=== PATIENT | female | born 1940 | race Two or more races ===

== ENCOUNTER → 2016-07-17 | Outpatient (CLI) | payer MEDICARE ==
--- NOTE | 2016-07-17 09:15 | RAD ---
DATE: 07/17/2016 EXAM: DIGITAL SCREEN BILAT W/CAD HISTORY: Routine screening COMPARISON: 01/14/2013 This study was interpreted with the benefit of Computerized Aided Detection (CAD). FINDINGS: There are scattered fibroglandular densities in the breasts. No new or enlarging breast densities are seen. Benign type calcifications are present. No suspicious microcalcifications have developed. IMPRESSION: Stable mammograms without evidence of malignancy. BI-RADS CATEGORY: 2 BENIGN FINDING(S) RECOMMENDED FOLLOW-UP: 12M 12 MONTH FOLLOW-UP PQRS compliance statement: Patient information was entered into a reminder system with a target due date for the next mammogram. Mammography is a sensitive method for finding small breast cancers, but it does not detect them all and is not a substitute for careful clinical examination. A negative mammogram does not negate a clinically suspicious finding and should not result in delay in biopsying a clinically suspicious abnormality. "Our facility is accredited by the [employer] Mammography Program."
== END | disposition home or self-care (01) ==
LOC: MAMMO 08:48
PROVIDERS: ATTEND Family Medicine
DX: Z12.31 Encounter for screening mammogram for malignant neoplasm of breast (principal)
CPT/HCPCS: G0202; 77067

== ENCOUNTER 2016-08-21 17:21 | Observation (INO) | payer MEDICARE ==
[~2016-08-21] VITALS: Ht 165.1 cm; Wt 81.4 kg
[2016-08-21 18:02] LABS: BASO # 0.1 x10^3/uL (0.0-0.2); BASO % 1 % (0-3); EOS % 1 % (0-3); HEMATOCRIT 38.6 % (36.0-47.0); HEMOGLOBIN 12.2 g/dL (12.0-15.5); LYMPH # 1.4 x10^3/uL (1.0-4.8); LYMPH % 23 % (24-48); MEAN CORPUSCULAR HEMOGLOBIN 26 pg (25-35); MEAN CORPUSCULAR HGB CONC 32 g/dL (31-37); MEAN CORPUSCULAR VOLUME 82 fL (79-100); MONO % 14 % (0-9); NEUT % 61 % (31-73); PLATELET COUNT 177 x10^3/uL (140-400); RED BLOOD COUNT 4.72 x10^6/uL (3.50-5.40); RED CELL DISTRIBUTION WIDTH 15.4 % (11.5-14.5); WHITE BLOOD COUNT 6.2 x10^3/uL (4.0-11.0)
--- NOTE | 2016-08-21 18:11 | EKG ---
[facility] [address] [place] [address] Test Date: 2016-08-21 Test Time: 17:40:00 Pat Name: BENJAMIN MANCERA Department: Room: Gender: F Information Technology Director: : 1940 Requested By: ASHLEY MERINO Order Number: [id number] Reading MD: Measurements Intervals [place] Rate: 77 P: WA: QRS: 36 QRSD: 80 T: 51 QT: 376 QTc: 427 Interpretive Statements IRREGULAR RHYTHM, NO P-WAVE FOUND QRS(T) CONTOUR ABNORMALITY CONSIDER ANTEROSEPTAL MYOCARDIAL DAMAGE RI6.01 No previous ECG available for comparison
[2016-08-21 18:18] LABS: CREATININE 0.8 mg/dL (0.6-1.0); GFR 70.1; POTASSIUM 3.9 mmol/L (3.5-5.1)
--- NOTE | 2016-08-21 18:19 | PHYS DOC ---
Adult General Chief Complaint Chief Complaint: epigastric abd pain HPI HPI 76 yo F presenting to the ED with epigastric abd pain and chest pain that radiates to the left shoulder. This started last night and has been present for about 24 hours. the pain is moderate and without associated nausea or vomiting. ROS is neg for n/v/d, soa, bloody stools. She denies fevers or chills. All other review of systems is negative unless otherwise noted in history of present illness. Review of Systems Review of Systems SEE ABOVE. Current Medications Current Medications Current Medications Medications (Trade) Dose Ordered Sig/Yobani Start Time Stop Time Status Last Admin Dose Admin Aspirin (Children'S Aspirin) 324 mg 1X ONCE 08/21/16 18:30 08/21/16 18:31 DC 08/21/16 18:27 324 MG Multi-Ingredient Mouthwash/Gargle (Gi Cocktail Single Dose) 15 ml 1X ONCE 08/21/16 19:00 08/21/16 19:01 DC 08/21/16 18:28 15 ML Allergies Allergies Allergies Coded Allergies Type Severity Reaction Last Updated Verified No Known Drug Allergies 08/21/16 No Physical Exam Physical Exam Constitutional: Well developed, well nourished, no acute distress, non-toxic appearance. HENT: Normocephalic, atraumatic, bilateral external ears normal, oropharynx moist, no oral exudates, nose normal. [] Eyes: PERRLA, EOMI, conjunctiva normal, no discharge. Neck: Normal range of motion, no tenderness, supple, no stridor. [] Cardiovascular:Heart rate regular rhythm, no murmur Lungs & Thorax: Bilateral breath sounds clear to auscultation [] Abdomen: Abdomen is soft and minimally tender in the epigastrium. No rebound tenderness or guarding present. Negative McBurney's point. Negative Levi sign. Skin: Warm, dry, no erythema, no rash. Back: No tenderness, no CVA tenderness. Extremities: No tenderness, no cyanosis, no clubbing, ROM intact, no edema. Neurologic: Alert and oriented X 3, normal motor function, normal sensory function, no focal deficits noted. Psychologic: Affect normal, judgement normal, mood normal. [] Current Patient Data Vital Signs Vital Signs Date Time Temp Pulse Resp B/P Pulse Ox O2 Delivery O2 Flow Rate FiO2 08/21/16 18:41 77 16 127/70 97 Room Air 08/21/16 17:45 98.4 98.4 Lab Values Laboratory Tests Test 08/21/16 17:55 White Blood Count 6.2x10^3/uL (4.0-11.0) Red Blood Count 4.72x10^6/uL (3.50-5.40) Hemoglobin 12.2g/dL (12.0-15.5) Hematocrit 38.6% (36.0-47.0) Mean Corpuscular Volume 82fL (79-100) Mean Corpuscular Hemoglobin 26pg (25-35) Mean Corpuscular Hemoglobin Concent 32g/dL (31-37) Red Cell Distribution Width 15.4% (11.5-14.5) H Platelet Count 177x10^3/uL (140-400) Neutrophils (%) (Auto) 61% (31-73) Lymphocytes (%) (Auto) 23% (24-48) L Monocytes (%) (Auto) 14% (0-9) H Eosinophils (%) (Auto) 1% (0-3) Basophils (%) (Auto) 1% (0-3) Neutrophils # (Auto) 3.8x10^3uL (1.8-7.7) Lymphocytes # (Auto) 1.4x10^3/uL (1.0-4.8) Monocytes # (Auto) 0.8x10^3/uL (0.0-1.1) Eosinophils # (Auto) 0.1x10^3/uL (0.0-0.7) Basophils # (Auto) 0.1x10^3/uL (0.0-0.2) Sodium Level 140mmol/L (136-145) Potassium Level 3.9mmol/L (3.5-5.1) Chloride Level 100mmol/L (98-107) Carbon Dioxide Level 33mmol/L (21-32) H Anion Gap 7 (6-14) Blood Urea Nitrogen 16mg/dL (7-20) Creatinine 0.8mg/dL (0.6-1.0) Estimated GFR (Cockcroft-Gault) 70.1 Glucose Level 103mg/dL (70-99) H Calcium Level 9.0mg/dL (8.5-10.1) Total Bilirubin 0.5mg/dL (0.2-1.0) Direct Bilirubin 0.1mg/dL (0.0-0.2) Aspartate Amino Transferase (AST) 13U/L (15-37) L Alanine Aminotransferase (ALT) 21U/L (14-59) Alkaline Phosphatase 71U/L (46-116) Troponin I Quantitative < 0.017ng/mL (0.000-0.055) BL-Asn-L-Type Natriuretic Peptide 89pg/mL (0-124) Total Protein 7.1g/dL (6.4-8.2) Albumin 3.7g/dL (3.4-5.0) Lipase 110U/L (73-393) Laboratory Tests 08/21/16 17:55 Laboratory Tests 08/21/16 17:55 EKG EKG [] EKG shows A. fib with a regular rate. [place] is leftward. Intervals are within normal limits. ST segments are congruent. Radiology/Procedures Radiology/Procedures Chest x-ray reviewed by myself shows no obvious infiltrate or pneumothorax present. No obvious acute cardiopulmonary process present.[] Course & Med Decision Making Course & Med Decision Making Pertinent Labs and Imaging studies reviewed. (See chart for details) [] 76-year-old female presenting to the emergency department with epigastric abdominal pain that radiated to the left shoulder and chest pain. vitals. Pertinent physical exam showed mild tenderness in the epigastrium without rebound tenderness or guarding present. Nontender gallbladder. EKG unremarkable. Blood work obtained which showed a normal troponin. Chest x-ray unremarkable. The patient was then admitted for chest pain rule out. Cardiology consult placed. Heart score of 5. Dragon Disclaimer Dragon Disclaimer This electronic medical record was generated, in whole or in part, using a voice recognition dictation system. Departure Departure Impression: Primary Impression: Chest pain Additional Impression: Epigastric abdominal pain Disposition: ADMITTED INPATIENT Admitting Physician: Meghana Pinon Condition: STABLE Referrals: MARISOL TEMPLE MD (PCP) Problem Qualifiers Primary Impression: Chest pain ASHLEY MERINO MD Aug 21, 2016 18:19
[2016-08-21 18:23] LABS: ALBUMIN 3.7 g/dL (3.4-5.0); DIRECT BILIRUBIN 0.1 mg/dL (0.0-0.2); TOTAL BILIRUBIN 0.5 mg/dL (0.2-1.0); TOTAL PROTEIN 7.1 g/dL (6.4-8.2)
[2016-08-21] MEDS ORDERED: ASPIRIN CHEWABLE 81 MG TABLET. PO ONE (18:30)
[2016-08-21] MEDS ORDERED: LIDO:MAALOX:DONNATAL 1:1:1 15 ML SINGLE DOSE SWSW ONE (19:00)
[2016-08-21] MEDS ORDERED: ONDANSETRON PF 4 MG/2 ML VIAL. IV PRN ×2 (20:30→20:32)
[2016-08-21] MEDS ORDERED: NITROGLYCERIN SUBLINGUAL 0.4 MG BOTTLE OF 25. SL PRN (20:30)
[2016-08-21] MEDS ORDERED: ACETAMINOPHEN 500 MG TABLET PO PRN (20:45)
[2016-08-21 23:01] VITALS: BP 112/68
[2016-08-21 23:02] VITALS: BP 112/68
[2016-08-21] MEDS: MORPHINE SULFATE 2 MG/ML DISP.SYRIN. IV PRN (23:12)
[2016-08-22] MEDS: MORPHINE SULFATE 2 MG/ML DISP.SYRIN. IV PRN ×2 (01:16→14:56)
[2016-08-22] MEDS ORDERED: DIAZ5TAB4 PO (01:42)
[2016-08-22] MEDS ORDERED: OMEG1CAP6 PO (01:42)
[2016-08-22] MEDS ORDERED: LOVA20TA2 PO (01:42)
[2016-08-22] MEDS ORDERED: LINA1TAB5 PO (01:42)
[2016-08-22] MEDS ORDERED: HYDR50TA6 PO (01:42)
[2016-08-22 02:30] VITALS: BP 93/58
[2016-08-22 05:38] LABS: BASO % 1 % (0-3); EOS % 1 % (0-3); HEMATOCRIT 36.8 % (36.0-47.0); HEMOGLOBIN 11.9 g/dL (12.0-15.5); LYMPH # 1.7 x10^3/uL (1.0-4.8); LYMPH % 30 % (24-48); MEAN CORPUSCULAR HEMOGLOBIN 27 pg (25-35); MEAN CORPUSCULAR HGB CONC 32 g/dL (31-37); MEAN CORPUSCULAR VOLUME 82 fL (79-100); MONO % 14 % (0-9); NEUT % 55 % (31-73); PLATELET COUNT 150 x10^3/uL (140-400); RED BLOOD COUNT 4.51 x10^6/uL (3.50-5.40); RED CELL DISTRIBUTION WIDTH 15.4 % (11.5-14.5); WHITE BLOOD COUNT 5.6 x10^3/uL (4.0-11.0)
[2016-08-22 05:58] LABS: CALCIUM 8.3 mg/dL (8.5-10.1); CREATININE 0.6 mg/dL (0.6-1.0); GFR 97.7; POTASSIUM 3.7 mmol/L (3.5-5.1)
[2016-08-22 07:00] VITALS: BP 107/62
--- NOTE | 2016-08-22 07:53 | RAD ---
Exam: AP portable chest. History: Chest pain by 1 day. Pain radiates to left posterior shoulder. Comparison: None. Findings: The heart and mediastinal structures are within normal limits for size. Lungs are without infiltrate. No pneumothorax or pleural effusion is appreciated. Impression: 1. No acute cardiopulmonary process.
--- NOTE | 2016-08-22 08:56 | PDOC2 ---
CARDIAC CONSULT DATE OF CONSULT Date of Consult DATE: 08/22/16 TIME: 08:51 REASON FOR CONSULT Reason for Consult: Chest Pain REFERRING PHYSICIAN Referring Physician: Dr. Moore SOURCE Source: Chart review, Patient HISTORY OF PRESENT ILLNESS HISTORY OF PRESENT ILLNESS This is a 76 yo female who presented with complaints of chest pain. Pain began a couple of days ago. Located in left upper quadrant and up under left breast. Radiated toward he left shoulder. Describes as constant and stabbing in nature. Worsened by deep breath and by applying pressure to the left chest. Reports pain is severely tender to touch. Does not seem to be affected by movement or activity. Jensen any associated dizziness, diaphoresis, palpitations, or nausea/ vomiting. No recent illness, fevers, orthopnea, or LE edema. History of HTN, HLP , and DM; is complaint with medications. PAST MEDICAL HISTORY Cardiovascular: HTN, Hyperlipidemia Pulmonary: No pertinent hx GI: No pertinent hx Heme/Onc: No pertinent hx Hepatobiliary: No pertinent hx Psych: No pertinent hx Rheumatologic: No pertinent hx Infectious disease: No pertinent hx ENT: No pertinent hx Renal/: No pertinent hx Endocrine: Diabetes Dermatology: No pertinent hx PAST SURGICAL HISTORY Past Surgical History: Other (oophorectomy ) FAMILY HISTORY Family History: Diabetes, Hypertension SOCIAL HISTORY Smoke: No ALCOHOL: occassional Drugs: None Lives: with Family CURRENT MEDICATIONS CURRENT MEDICATIONS Current Medications Medications (Trade) Dose Ordered Sig/Yobani Route PRN Reason Start Time Stop Time Status Last Admin Dose Admin Aspirin (Children'S Aspirin) 324 mg 1X ONCE PO 08/21/16 18:30 08/21/16 18:31 DC 08/21/16 18:27 Multi-Ingredient Mouthwash/Gargle (Gi Cocktail Single Dose) 15 ml 1X ONCE SWSW 08/21/16 19:00 08/21/16 19:01 DC 08/21/16 18:28 Morphine Sulfate 2 mg PRN Q2HR PRN IV PAIN 08/21/16 20:30 08/22/16 20:29 08/22/16 01:16 ALLERGIES ALLERGIES: Coded Allergies: No Known Drug Allergies (Unverified , 08/21/16) ROS Review of System 14 point ROS conducted with pertinent positives noted above in HPI PHYSICAL EXAM General: Alert, Oriented X3, Cooperative, No acute distress HEENT: Atraumatic, Mucous membr. moist/pink Lungs: Clear to auscultation, Normal air movement Heart: Regular rate, Normal S1, Normal S2, No murmurs, Other (tenderness with palpation to chest under left breast) Abdomen: Soft, Other (LUQ tenderness with palpation) Extremities: No edema, Normal pulses Skin: No breakdown, No significant lesion Neuro: Normal speech, Sensation intact Psych/Mental Status: Mental status NL, Mood NL MUSCULOSKELETAL: Full range of motion without pain VITALS VITALS Vital Signs Date Time Temp Pulse Resp B/P Pulse Ox O2 Delivery O2 Flow Rate FiO2 08/22/16 07:00 97.9 70 18 107/62 94 Room Air 97.9 LABS Lab: Laboratory Tests Test 08/21/16 17:55 08/22/16 01:53 08/22/16 05:00 08/22/16 08:03 White Blood Count 6.2x10^3/uL (4.0-11.0) 5.6x10^3/uL (4.0-11.0) Red Blood Count 4.72x10^6/uL (3.50-5.40) 4.51x10^6/uL (3.50-5.40) Hemoglobin 12.2g/dL (12.0-15.5) 11.9g/dL (12.0-15.5) Hematocrit 38.6% (36.0-47.0) 36.8% (36.0-47.0) Mean Corpuscular Volume 82fL (79-100) 82fL (79-100) Mean Corpuscular Hemoglobin 26pg (25-35) 27pg (25-35) Mean Corpuscular Hemoglobin Concent 32g/dL (31-37) 32g/dL (31-37) Red Cell Distribution Width 15.4% (11.5-14.5) 15.4% (11.5-14.5) Platelet Count 177x10^3/uL (140-400) 150x10^3/uL (140-400) Neutrophils (%) (Auto) 61% (31-73) 55% (31-73) Lymphocytes (%) (Auto) 23% (24-48) 30% (24-48) Monocytes (%) (Auto) 14% (0-9) 14% (0-9) Eosinophils (%) (Auto) 1% (0-3) 1% (0-3) Basophils (%) (Auto) 1% (0-3) 1% (0-3) Neutrophils # (Auto) 3.8x10^3uL (1.8-7.7) 3.1x10^3uL (1.8-7.7) Lymphocytes # (Auto) 1.4x10^3/uL (1.0-4.8) 1.7x10^3/uL (1.0-4.8) Monocytes # (Auto) 0.8x10^3/uL (0.0-1.1) 0.8x10^3/uL (0.0-1.1) Eosinophils # (Auto) 0.1x10^3/uL (0.0-0.7) 0.1x10^3/uL (0.0-0.7) Basophils # (Auto) 0.1x10^3/uL (0.0-0.2) 0.0x10^3/uL (0.0-0.2) Sodium Level 140mmol/L (136-145) 140mmol/L (136-145) Potassium Level 3.9mmol/L (3.5-5.1) 3.7mmol/L (3.5-5.1) Chloride Level 100mmol/L (98-107) 102mmol/L (98-107) Carbon Dioxide Level 33mmol/L (21-32) 31mmol/L (21-32) Anion Gap 7 (6-14) 7 (6-14) Blood Urea Nitrogen 16mg/dL (7-20) 10mg/dL (7-20) Creatinine 0.8mg/dL (0.6-1.0) 0.6mg/dL (0.6-1.0) Estimated GFR (Cockcroft-Gault) 70.1 97.7 Glucose Level 103mg/dL (70-99) 115mg/dL (70-99) Calcium Level 9.0mg/dL (8.5-10.1) 8.3mg/dL (8.5-10.1) Total Bilirubin 0.5mg/dL (0.2-1.0) Direct Bilirubin 0.1mg/dL (0.0-0.2) Aspartate Amino Transf (AST/SGOT) 13U/L (15-37) Alanine Aminotransferase (ALT/SGPT) 21U/L (14-59) Alkaline Phosphatase 71U/L (46-116) Troponin I Quantitative < 0.017ng/mL (0.000-0.055) < 0.017ng/mL (0.000-0.055) LA-Lep-R-Type Natriuretic Peptide 89pg/mL (0-124) Total Protein 7.1g/dL (6.4-8.2) Albumin 3.7g/dL (3.4-5.0) Lipase 110U/L (73-393) Glucose (Fingerstick) 124mg/dL (70-99) STRESS TEST STRESS TEST Conclusion 1. Treadmill exercise cardioisotope stress test did not show any evidence of ischemia or infarct. 2. Normal left ventricular systolic function with ejection fraction calculated at >80%. 3. Patient had good activity tolerance. Low risk for cardiovascular events. DATE: 01/11/15 6897 ASSESSMENT/PLAN ASSESSMENT/PLAN 1. Chest pain, atypical- easily reproduced troponin series normal- AMI ruled out pain likely MSK as it is clearly reproducible or referred from abdominal process? treadmill stress 12/30 without evidence of ischemia given risk factors, will check echo to assess LV function and r/o WMA Add [id number] 2. Hypertension well controlled with meds 3. Hyperlipidemia LDL 95 statin therapy 4. Diabetes controlled. per PCP Problems: SLY PATRICK APRN Aug 22, 2016 08:56
[2016-08-22 08:58] LABS: CHOLESTEROL/HDL RATIO 2.3
[2016-08-22] MEDS ORDERED: FAMOTIDINE 20 MG/2 ML VIAL IVP ONE (09:00)
[2016-08-22] MEDS ORDERED: LINAGLIPTIN 5 MG TABLET PO SCH ×2 (09:30)
[2016-08-22] MEDS ORDERED: HYDROCHLOROTHIAZIDE 25 MG TABLET PO SCH (09:30)
[2016-08-22] MEDS ORDERED: METFORMIN XR 500 MG TAB.ER.24H PO SCH (09:30)
--- NOTE | 2016-08-22 10:01 | PDOC1 ---
History and Physical Date of Admission Date of Admission DATE: 08/22/16 TIME: 09:55 Identification/Chief Complaint Chief Complaint chest pain Source Source: Chart review, Patient History of Present Illness History of Present Illness Ms. Lam, is a 76 yo female admit from ER w/ chest pain. Pain began a couple of days ago. Pain 5/10 mid chest, started epigastric to left shoulder yesterday. Episodes X2 of pain, happeded at exertion andstopped at rest. She feels well now, pain 0 at rest, but worse with deep inspiration and she can press on her chest and cause the pain no prior CV history, htn and Dm she reports following well with PCP Past Medical History Cardiovascular: HTN, Hyperlipidemia Pulmonary: No pertinent hx GI: No pertinent hx Heme/Onc: No pertinent hx Hepatobiliary: No pertinent hx Psych: No pertinent hx Rheumatologic: No pertinent hx Infectious disease: No pertinent hx ENT: No pertinent hx Renal/: No pertinent hx Endocrine: Diabetes Dermatology: No pertinent hx Past Surgical History Past Surgical History: Other (oophorectomy ) Family History Family History: Diabetes, Hypertension Social History Smoke: No ALCOHOL: none Drugs: None Current Problem List Problem List Problems Medical Problems: (1) Chest pain Status: Acute (2) Epigastric abdominal pain Status: Acute Problems: Current Medications Current Medications Current Medications Aspirin (Children'S Aspirin) 324 mg 1X ONCE PO Last administered on 08/21/16 18:27; Start 08/21/16 at 18:30; Stop 08/21/16 at 18:31; Status DC Multi-Ingredient Mouthwash/Gargle (Gi Cocktail Single Dose) 15 ml 1X ONCE SWSW Last administered on 08/21/16 18:28; Start 08/21/16 at 19:00; Stop 08/21/16 at 19:01; Status DC Ondansetron HCl (Zofran) 4 mg PRN Q8HRS PRN IV NAUSEA/VOMITING; Start 08/21/16 at 20:30; Stop 08/21/16 at 20:34; Status DC Morphine Sulfate 2 mg PRN Q2HR PRN IV PAIN Last administered on 08/22/16 01:16 ; Start 08/21/16 at 20:30; Stop 08/22/16 at 20:29 Nitroglycerin (Nitrostat) 0.4 mg PRN Q5MIN PRN SL CHEST PAIN; Start 08/21/16 at 20:30; Stop 08/22/16 at 20:29 Ondansetron HCl (Zofran) 4 mg PRN Q6HRS PRN IV NAUSEA/VOMITING; Start 08/21/16 at 20:32 Acetaminophen (Tylenol) 500 mg PRN Q4HRS PRN PO pain; Start 08/21/16 at 20:45 Famotidine (Pepcid) 20 mg 1X ONCE IVP ; Start 08/22/16 at 09:00; Stop 08/22/16 at 09:01; Status DC Diazepam (Valium) 5 mg QHS PO ; Start 08/22/16 at 21:00 Hydrochlorothiazide (Hydrodiuril) 50 mg DAILY PO ; Start 08/22/16 at 09:30 Linagliptin (Tradjenta) 5 mg DAILY PO ; Start 08/22/16 at 09:30; Stop 08/22/16 at 09:30; Status DC Atorvastatin Calcium (Lipitor) 10 mg QHS PO ; Start 08/22/16 at 21:00 Metformin HCl (Glucophage Xr) 1,000 mg DAILYWBKFT PO ; Start 08/22/16 at 09:30 Linagliptin (Tradjenta) 5 mg DAILY PO ; Start 08/22/16 at 09:30 Aspirin (Ecotrin) 81 mg DAILYWBKFT PO ; Start 08/22/16 at 10:30 Lidocaine (Lidoderm) 1 patch DAILY TD ; Start 08/22/16 at 10:30 Active Scripts Active Reported Fish Oil 1,000 Mg Capsule ([place]-3 Fatty Acids/Fish Oil) 1 Each Capsule 1 Each PO Lovastatin 20 Mg Tablet 1 Tab PO DAILY Jentadueto 2.5 Mg-1000 Mg Tab (Linagliptin/Metformin Hcl) 1 Each Tablet 5 Mg PO DAILY Hydrochlorothiazide Tablet (Hydrochlorothiazide) 50 Mg Tablet 1 Tab PO DAILY Diazepam 5 Mg Tablet 5 Mg PO QHS Allergies Allergies: Coded Allergies: No Known Drug Allergies (Unverified , 08/21/16) ROS General: No: Appetite, Chills, Fatigue, Malaise, Night Sweats, Other PSYCHOLOGICAL ROS: No: Anxiety, Behavioral Disorder, Concentration difficultie , Decreased libido, Depression, Disorientation, Hallucinations, Hostility, Irritablity, Memory difficulties, Mood Swings, Obsessive thoughts, Other, Physical abuse, Sexual abuse, Sleep disturbances, Suicidal ideation Eyes: No Blurry vision, No Decreased vision, No Double vision, No Dry eyes, No Excessive tearing, No Eye Pain, No Itchy Eyes, No Loss of vision, No Other, No Photophobia, No Scotomata, No Uses contacts, No Uses glasses HEENT: No: Epistaxis, Heacaches, Hearing change, Nasal congestion, Nasal discharge, Oral lesions, Other, Sinus pain, Sneezing, Snoring, Sore Throat, Tinnitus, Vertigo, Visual Changes, Vocal changes Respiratory: YES: SOB with excertion, No: Cough, Hemoptysis, Orthopnea, Other, Pleuritic Pain, Shortness of breath , Sputum Changes, Stridor, Tachypnea, Wheezing Cardiovascular: yes Chest Pain, No Edema, No Lt Headedness, No Orthopnea, No Other, No Palpitations, No Paroxysmal Noc. Dyspnea Gastrointestinal: No Abdominal Pain, No Constipation, No Diarrhea, No Hematochezia, No Melena, No Nausea, No Other, No Vomiting Genitourinary: No , No , No , No , No , No , No , No Discharge, No Dysuria, No Flank Pain, No Frequency, No Hematuria, No Incontinence, No Other, No Pain, No Retention, No Urgency Musculoskeletal: Yes Joint Pain, No Gait Disturbance, No Joint Stiffness, No Joint Swelling, No Muscle Pain, No Muscular Weakness, No Other, No Pain In:, No Swelling In: Neurological: No Behavorial Changes, No Bowel/Bladder ControlChng, No Confusion , No Dizziness, No Gait Disturbance, No Headaches, No Impaired Coord/balance, No Memory Loss, No Numbness/Tingling, No Other, No Seizures, No Speech Problems , No Tremors, No Visual Changes, No Weakness Skin: No Acne, No Dry Skin, No Eczema, No Hair Changes, No Lumps, No Mole Changes, No Mottling, No Nail Changes, No Other, No Pruritus, No Rash, No Skin Lesion Changes Physical Exam General: Alert, Cooperative, No acute distress HEENT: PERRLA Lungs: Clear to auscultation, Normal air movement, Other (tender to palpation mid sternum) Heart: RRR, no murmurs Abdomen: Normal bowel sounds, Soft Rectal Exam: not examined Extremities: No clubbing, No cyanosis Skin: No breakdown Neuro: Normal gait, Normal speech, Normal tone, Sensation intact, Cranial nerves 3-12 NL Psych/Mental Status: Mood NL Vitals Vitals Vital Signs Date Time Temp Pulse Resp B/P Pulse Ox O2 Delivery O2 Flow Rate FiO2 08/22/16 07:00 97.9 70 18 107/62 94 Room Air 97.9 Labs Labs Laboratory Tests Test 08/21/16 17:55 08/22/16 01:53 08/22/16 05:00 08/22/16 08:03 White Blood Count 6.2x10^3/uL (4.0-11.0) 5.6x10^3/uL (4.0-11.0) Red Blood Count 4.72x10^6/uL (3.50-5.40) 4.51x10^6/uL (3.50-5.40) Hemoglobin 12.2g/dL (12.0-15.5) 11.9g/dL (12.0-15.5) Hematocrit 38.6% (36.0-47.0) 36.8% (36.0-47.0) Mean Corpuscular Volume 82fL (79-100) 82fL (79-100) Mean Corpuscular Hemoglobin 26pg (25-35) 27pg (25-35) Mean Corpuscular Hemoglobin Concent 32g/dL (31-37) 32g/dL (31-37) Red Cell Distribution Width 15.4% (11.5-14.5) 15.4% (11.5-14.5) Platelet Count 177x10^3/uL (140-400) 150x10^3/uL (140-400) Neutrophils (%) (Auto) 61% (31-73) 55% (31-73) Lymphocytes (%) (Auto) 23% (24-48) 30% (24-48) Monocytes (%) (Auto) 14% (0-9) 14% (0-9) Eosinophils (%) (Auto) 1% (0-3) 1% (0-3) Basophils (%) (Auto) 1% (0-3) 1% (0-3) Neutrophils # (Auto) 3.8x10^3uL (1.8-7.7) 3.1x10^3uL (1.8-7.7) Lymphocytes # (Auto) 1.4x10^3/uL (1.0-4.8) 1.7x10^3/uL (1.0-4.8) Monocytes # (Auto) 0.8x10^3/uL (0.0-1.1) 0.8x10^3/uL (0.0-1.1) Eosinophils # (Auto) 0.1x10^3/uL (0.0-0.7) 0.1x10^3/uL (0.0-0.7) Basophils # (Auto) 0.1x10^3/uL (0.0-0.2) 0.0x10^3/uL (0.0-0.2) Sodium Level 140mmol/L (136-145) 140mmol/L (136-145) Potassium Level 3.9mmol/L (3.5-5.1) 3.7mmol/L (3.5-5.1) Chloride Level 100mmol/L (98-107) 102mmol/L (98-107) Carbon Dioxide Level 33mmol/L (21-32) 31mmol/L (21-32) Anion Gap 7 (6-14) 7 (6-14) Blood Urea Nitrogen 16mg/dL (7-20) 10mg/dL (7-20) Creatinine 0.8mg/dL (0.6-1.0) 0.6mg/dL (0.6-1.0) Estimated GFR (Cockcroft-Gault) 70.1 97.7 Glucose Level 103mg/dL (70-99) 115mg/dL (70-99) Calcium Level 9.0mg/dL (8.5-10.1) 8.3mg/dL (8.5-10.1) Total Bilirubin 0.5mg/dL (0.2-1.0) Direct Bilirubin 0.1mg/dL (0.0-0.2) Aspartate Amino Transf (AST/SGOT) 13U/L (15-37) Alanine Aminotransferase (ALT/SGPT) 21U/L (14-59) Alkaline Phosphatase 71U/L (46-116) Troponin I Quantitative < 0.017ng/mL (0.000-0.055) < 0.017ng/mL (0.000-0.055) SZ-Cey-H-Type Natriuretic Peptide 89pg/mL (0-124) Total Protein 7.1g/dL (6.4-8.2) Albumin 3.7g/dL (3.4-5.0) Lipase 110U/L (73-393) Glucose (Fingerstick) 124mg/dL (70-99) Test 08/22/16 08:20 Troponin I Quantitative < 0.017ng/mL (0.000-0.055) Triglycerides Level 22mg/dL (0-150) Cholesterol Level 173mg/dL (0-200) LDL Cholesterol, Calculated 95mg/dL (0-100) VLDL Cholesterol, Calculated 4mg/dL (0-40) HDL Cholesterol 74mg/dL (40-60) Cholesterol/HDL Ratio 2.3 Laboratory Tests Test 08/21/16 17:55 08/22/16 01:53 08/22/16 05:00 08/22/16 08:03 White Blood Count 6.2x10^3/uL (4.0-11.0) 5.6x10^3/uL (4.0-11.0) Red Blood Count 4.72x10^6/uL (3.50-5.40) 4.51x10^6/uL (3.50-5.40) Hemoglobin 12.2g/dL (12.0-15.5) 11.9g/dL (12.0-15.5) Hematocrit 38.6% (36.0-47.0) 36.8% (36.0-47.0) Mean Corpuscular Volume 82fL (79-100) 82fL (79-100) Mean Corpuscular Hemoglobin 26pg (25-35) 27pg (25-35) Mean Corpuscular Hemoglobin Concent 32g/dL (31-37) 32g/dL (31-37) Red Cell Distribution Width 15.4% (11.5-14.5) 15.4% (11.5-14.5) Platelet Count 177x10^3/uL (140-400) 150x10^3/uL (140-400) Neutrophils (%) (Auto) 61% (31-73) 55% (31-73) Lymphocytes (%) (Auto) 23% (24-48) 30% (24-48) Monocytes (%) (Auto) 14% (0-9) 14% (0-9) Eosinophils (%) (Auto) 1% (0-3) 1% (0-3) Basophils (%) (Auto) 1% (0-3) 1% (0-3) Neutrophils # (Auto) 3.8x10^3uL (1.8-7.7) 3.1x10^3uL (1.8-7.7) Lymphocytes # (Auto) 1.4x10^3/uL (1.0-4.8) 1.7x10^3/uL (1.0-4.8) Monocytes # (Auto) 0.8x10^3/uL (0.0-1.1) 0.8x10^3/uL (0.0-1.1) Eosinophils # (Auto) 0.1x10^3/uL (0.0-0.7) 0.1x10^3/uL (0.0-0.7) Basophils # (Auto) 0.1x10^3/uL (0.0-0.2) 0.0x10^3/uL (0.0-0.2) Sodium Level 140mmol/L (136-145) 140mmol/L (136-145) Potassium Level 3.9mmol/L (3.5-5.1) 3.7mmol/L (3.5-5.1) Chloride Level 100mmol/L (98-107) 102mmol/L (98-107) Carbon Dioxide Level 33mmol/L (21-32) 31mmol/L (21-32) Anion Gap 7 (6-14) 7 (6-14) Blood Urea Nitrogen 16mg/dL (7-20) 10mg/dL (7-20) Creatinine 0.8mg/dL (0.6-1.0) 0.6mg/dL (0.6-1.0) Estimated GFR (Cockcroft-Gault) 70.1 97.7 Glucose Level 103mg/dL (70-99) 115mg/dL (70-99) Calcium Level 9.0mg/dL (8.5-10.1) 8.3mg/dL (8.5-10.1) Total Bilirubin 0.5mg/dL (0.2-1.0) Direct Bilirubin 0.1mg/dL (0.0-0.2) Aspartate Amino Transf (AST/SGOT) 13U/L (15-37) Alanine Aminotransferase (ALT/SGPT) 21U/L (14-59) Alkaline Phosphatase 71U/L (46-116) Troponin I Quantitative < 0.017ng/mL (0.000-0.055) < 0.017ng/mL (0.000-0.055) IP-Amz-Q-Type Natriuretic Peptide 89pg/mL (0-124) Total Protein 7.1g/dL (6.4-8.2) Albumin 3.7g/dL (3.4-5.0) Lipase 110U/L (73-393) Glucose (Fingerstick) 124mg/dL (70-99) Test 08/22/16 08:20 Troponin I Quantitative < 0.017ng/mL (0.000-0.055) Triglycerides Level 22mg/dL (0-150) Cholesterol Level 173mg/dL (0-200) LDL Cholesterol, Calculated 95mg/dL (0-100) VLDL Cholesterol, Calculated 4mg/dL (0-40) HDL Cholesterol 74mg/dL (40-60) Cholesterol/HDL Ratio 2.3 VTE Prophylaxis Ordered VTE Prophylaxis Devices: Yes VTE Pharmacological Prophylaxi: No Assessment/Plan Assessment/Plan chest pain, reproducible, chostochrondritis pain with exertion and chest pain to shoulder x2 yesterday, r/o ACS, unsure if true anginal pain, patient seemed confused when I tried to get more details of when and how the pain happened CV consult plan echo Dm2, diet htn, hyperlipids, check lipids obs, try to DC soon SHAYE MIRZA MD Aug 22, 2016 10:01
[2016-08-22] MEDS ORDERED: ASPIRIN ENTERIC COATED 81 MG TABLET.DR. PO SCH (10:30)
[2016-08-22] MEDS ORDERED: LIDOCAINE (700MG/PATCH) PATCH. TD SCH (10:30)
[2016-08-22 10:54] VITALS: BP 110/64
--- NOTE | 2016-08-22 12:39 | CARD ---
APPROVED REPORT EXAM: Two-dimensional and M-mode echocardiogram with Doppler and color Doppler. Other Information Quality : Good INDICATION Chest Pain 2D DIMENSIONS RVDd2.2 (2.9-3.5cm)Left Atrium(2D)3.4 (1.6-4.0cm) IVSd1.1 (0.7-1.1cm)Aortic Root(2D)2.5 (2.0-3.7cm) LVDd5.1 (3.9-5.9cm)LVOT Diameter1.9 (1.8-2.4cm) PWd1.0 (0.7-1.1cm)LVDs2.4 (2.5-4.0cm) FS (%) 30.0 %SV103.5 ml LVEF(%)60.0 (>50%) Aortic Valve AoV Peak Romulo.122.7cm/sAoV VTI25.2cm AO Peak GR.6.0mmHgLVOT Peak Romulo.120.5cm/s LVOT VTI 25.76cmAO Mean GR.4mmHg SHELLI (VMAX)2.41dk1LHL (VTI)2.82cm2 Mitral Valve MV E Zfundyey18.6cm/sMV DECEL [id number] MV A Rkphtxdz50.4cm/sMV KFO77mp E/A Ratio0.8MVA (PHT)2.83cm2 TDI E/Lateral E'8.7E/Medial E'8.3 Tricuspid Valve TR P. Kqljtpfy961gv/sRAP UFCHSLRS9ahQt TR Peak Gr.42yhZmVFOU38cfSj Pulmonary Vein S1 Edtbfrhm20.8cm/sD2 Znlmbcnq31.1cm/s PVa cfihilsm216cnbd LEFT VENTRICLE The left ventricle is normal size. There is normal left ventricular wall thickness. The left ventricu lar systolic function is normal and the ejection fraction is within normal range. The Ejection Fracti on is 55-60%. There is normal LV segmental wall motion. Transmitral Doppler flow pattern is Grade I-a bnormal relaxation pattern. RIGHT VENTRICLE The right ventricle is normal size. The right ventricular systolic function is normal. ATRIA The left atrium size is normal. The right atrium size is normal. The interatrial septum is intact wit h no evidence for an atrial septal defect or patent foramen ovale as noted on 2-D or Doppler imaging. AORTIC VALVE The aortic valve is calcified but opens well. Doppler and Color Flow revealed no significant aortic r egurgitation. There is no significant aortic valvular stenosis. MITRAL VALVE The mitral valve is calcified but opens well. There is no evidence of mitral valve prolapse. There is no mitral valve stenosis. Doppler and Color-flow revealed trace to mild mitral regurgitation. TRICUSPID VALVE The tricuspid valve is normal in structure and function. Doppler and Color Flow revealed trace tricus pid regurgitation. The PA pressure was estimated at 18 mmHg. There is no tricuspid valve stenosis. PULMONIC VALVE The pulmonary valve is normal in structure and function. Doppler and Color Flow revealed mild pulmoni c valvular regurgitation. There is no pulmonic valvular stenosis. GREAT VESSELS The aortic root is normal in size. The ascending aorta is normal in size. The IVC is normal in size a nd collapses >50% with inspiration. PERICARDIAL EFFUSION There is no evidence of significant pericardial effusion. Critical Notification Critical Value: No <Conclusion> The left ventricle is normal size. The left ventricular systolic function is normal and the ejection fraction is within normal range. The Ejection Fraction is 55-60%. There is normal LV segmental wall motion. There is no significant aortic valvular stenosis. Doppler and Color Flow revealed no significant aortic regurgitation. Doppler and Color-flow revealed trace to mild mitral regurgitation. Doppler and Color Flow revealed trace tricuspid regurgitation. The PA pressure was estimated at 18 mmHg. There is no evidence of significant pericardial effusion.
[2016-08-22 15:02] VITALS: BP 89/50
--- NOTE | 2016-08-22 15:02 | EKG ---
[facility] [address] [place] [address] Test Date: 2016-08-22 Test Time: 15:01:14 Pat Name: BENJAMIN MANCERA Department: Room: 548 1 Gender: F Surgical Services Director: SAUMYA : 1940 Requested By: SHARON FISH Order Number: [id number] Reading MD: Measurements Intervals [place] Rate: 76 P: 28 WI: 206 QRS: 42 QRSD: 80 T: 64 QT: 380 QTc: 432 Interpretive Statements SINUS RHYTHM QRS(T) CONTOUR ABNORMALITY CONSIDER ANTEROSEPTAL MYOCARDIAL DAMAGE POSSIBLY ABNORMAL ECG RI6.01 No previous ECG available for comparison
[2016-08-22 15:04] VITALS: BP 99/56
[2016-08-22] MEDS ORDERED: LIDO:MAALOX:DONNATAL 1:1:1 15 ML SINGLE DOSE SWSW ONE (16:30)
[2016-08-22] MEDS ORDERED: FAMOTIDINE 20 MG TABLET. PO ONE (16:30)
--- NOTE | 2016-08-22 16:51 | PDOC2 ---
GI CONSULT Reason For Consult: GERD pain HPI: HPI: 76 y/o female admitted w/ chest pain, cardiac etiology ruled out, GI asked to see. Note rapid response called earlier for sharp LUQ pain. Lidoderm was ineffective. She speaks some Beninese and her is available for help w/ translation. She reports midchest and upper abdominal pain that began yesterday and has settled in the LUQ today. 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 No relation to eating. No n/v. Does have heartburn twice weekly, improved w/ Tums PRN. No previous EGD. No diarrhea or constipation; note her says she takes Metamucil which promotes regular bowel habits. Denies hematochezia and melena. Reports previous colonoscopy 3-4 years ago w/ Dr. Gladys Diane, was told to repeat exam in 5 years. No NSAID use, does take Tramadol for pain. PMH: PMH: HTN, HLD, DM, GERD, cholecystectomy, hysterectomy FH: Family History: Cancer (mother - stomach or eosphageal cancer) Social History: Smoke: No ALCOHOL: none Drugs: None ROS: GEN: Denies fevers, chills, sweats HEENT: Denies blurred vision, sore throat CV: +chest pain RESP: Denies shortness of air, cough GI: Per HPI : Denies hematuria, dysuria ENDO: Denies weight changes NEURO: Denies confusion, dizziness MSK: Denies weakness, joint pain/swelling SKIN: Denies jaundice, pruritus VItals: Vitals: Vital Signs Date Time Temp Pulse Resp B/P Pulse Ox O2 Delivery O2 Flow Rate FiO2 08/22/16 15:04 83 18 99/56 97 Room Air 08/22/16 15:02 97.9 97.9 Labs: Labs: Laboratory Tests Test 08/21/16 17:55 08/22/16 01:53 08/22/16 05:00 08/22/16 08:03 White Blood Count 6.2x10^3/uL (4.0-11.0) 5.6x10^3/uL (4.0-11.0) Red Blood Count 4.72x10^6/uL (3.50-5.40) 4.51x10^6/uL (3.50-5.40) Hemoglobin 12.2g/dL (12.0-15.5) 11.9g/dL (12.0-15.5) Hematocrit 38.6% (36.0-47.0) 36.8% (36.0-47.0) Mean Corpuscular Volume 82fL (79-100) 82fL (79-100) Mean Corpuscular Hemoglobin 26pg (25-35) 27pg (25-35) Mean Corpuscular Hemoglobin Concent 32g/dL (31-37) 32g/dL (31-37) Red Cell Distribution Width 15.4% (11.5-14.5) 15.4% (11.5-14.5) Platelet Count 177x10^3/uL (140-400) 150x10^3/uL (140-400) Neutrophils (%) (Auto) 61% (31-73) 55% (31-73) Lymphocytes (%) (Auto) 23% (24-48) 30% (24-48) Monocytes (%) (Auto) 14% (0-9) 14% (0-9) Eosinophils (%) (Auto) 1% (0-3) 1% (0-3) Basophils (%) (Auto) 1% (0-3) 1% (0-3) Neutrophils # (Auto) 3.8x10^3uL (1.8-7.7) 3.1x10^3uL (1.8-7.7) Lymphocytes # (Auto) 1.4x10^3/uL (1.0-4.8) 1.7x10^3/uL (1.0-4.8) Monocytes # (Auto) 0.8x10^3/uL (0.0-1.1) 0.8x10^3/uL (0.0-1.1) Eosinophils # (Auto) 0.1x10^3/uL (0.0-0.7) 0.1x10^3/uL (0.0-0.7) Basophils # (Auto) 0.1x10^3/uL (0.0-0.2) 0.0x10^3/uL (0.0-0.2) Sodium Level 140mmol/L (136-145) 140mmol/L (136-145) Potassium Level 3.9mmol/L (3.5-5.1) 3.7mmol/L (3.5-5.1) Chloride Level 100mmol/L (98-107) 102mmol/L (98-107) Carbon Dioxide Level 33mmol/L (21-32) 31mmol/L (21-32) Anion Gap 7 (6-14) 7 (6-14) Blood Urea Nitrogen 16mg/dL (7-20) 10mg/dL (7-20) Creatinine 0.8mg/dL (0.6-1.0) 0.6mg/dL (0.6-1.0) Estimated GFR (Cockcroft-Gault) 70.1 97.7 Glucose Level 103mg/dL (70-99) 115mg/dL (70-99) Calcium Level 9.0mg/dL (8.5-10.1) 8.3mg/dL (8.5-10.1) Total Bilirubin 0.5mg/dL (0.2-1.0) Direct Bilirubin 0.1mg/dL (0.0-0.2) Aspartate Amino Transf (AST/SGOT) 13U/L (15-37) Alanine Aminotransferase (ALT/SGPT) 21U/L (14-59) Alkaline Phosphatase 71U/L (46-116) Troponin I Quantitative < 0.017ng/mL (0.000-0.055) < 0.017ng/mL (0.000-0.055) BN-Qdb-P-Type Natriuretic Peptide 89pg/mL (0-124) Total Protein 7.1g/dL (6.4-8.2) Albumin 3.7g/dL (3.4-5.0) Lipase 110U/L (73-393) Glucose (Fingerstick) 124mg/dL (70-99) Test 08/22/16 08:20 08/22/16 10:46 Troponin I Quantitative < 0.017ng/mL (0.000-0.055) Triglycerides Level 22mg/dL (0-150) Cholesterol Level 173mg/dL (0-200) LDL Cholesterol, Calculated 95mg/dL (0-100) VLDL Cholesterol, Calculated 4mg/dL (0-40) HDL Cholesterol 74mg/dL (40-60) Cholesterol/HDL Ratio 2.3 Glucose (Fingerstick) 201mg/dL (70-99) Allergies: Coded Allergies: No Known Drug Allergies (Unverified , 08/21/16) Medications: Current Medications Medications (Trade) Dose Ordered Sig/Yobani Route PRN Reason Start Time Stop Time Status Last Admin Dose Admin Aspirin (Children'S Aspirin) 324 mg 1X ONCE PO 08/21/16 18:30 08/21/16 18:31 DC 08/21/16 18:27 Multi-Ingredient Mouthwash/Gargle (Gi Cocktail Single Dose) 15 ml 1X ONCE SWSW 08/21/16 19:00 08/21/16 19:01 DC 08/21/16 18:28 Morphine Sulfate 2 mg PRN Q2HR PRN IV PAIN 08/21/16 20:30 08/22/16 20:29 08/22/16 14:56 Ondansetron HCl (Zofran) 4 mg PRN Q6HRS PRN IV NAUSEA/VOMITING 08/21/16 20:32 08/22/16 14:56 Famotidine (Pepcid) 20 mg 1X ONCE IVP 08/22/16 09:00 08/22/16 09:01 DC 08/22/16 10:11 Hydrochlorothiazide (Hydrodiuril) 50 mg DAILY PO 08/22/16 09:30 08/22/16 10:12 Metformin HCl (Glucophage Xr) 1,000 mg DAILYWBKFT PO 08/22/16 09:30 08/22/16 10:12 Linagliptin (Tradjenta) 5 mg DAILY PO 08/22/16 09:30 08/22/16 10:12 Aspirin (Ecotrin) 81 mg DAILYWBKFT PO 08/22/16 10:30 08/22/16 10:12 Lidocaine (Lidoderm) 1 patch DAILY TD 08/22/16 10:30 08/22/16 10:11 Imaging: Imaging: CXR Impression: 1. No acute cardiopulmonary process. Echocardiogram <Conclusion> The left ventricle is normal size. The left ventricular systolic function is normal and the ejection fraction is within normal range. The Ejection Fraction is 55-60%. There is normal LV segmental wall motion. There is no significant aortic valvular stenosis. Doppler and Color Flow revealed no significant aortic regurgitation. Doppler and Color-flow revealed trace to mild mitral regurgitation. Doppler and Color Flow revealed trace tricuspid regurgitation. The PA pressure was estimated at 18 mmHg. There is no evidence of significant pericardial effusion. PE: GEN: NAD HEENT: Atraumatic, PERRL LUNGS: CTAB HEART: RRR ABD: NABS, S/ND, LUQ tenderness to epigastrium EXTREMITY: No edema SKIN: No rashes, no jaundice NEURO/PSYCH: A & O 3 A/P: A/P: LUQ pain -began as chest/upper abd pain yesterday, settled in LUQ -worse w/ movement, deep breathing, palpation -s/p cholecystectomy, hysterectomy -Lidoderm didn't help Heartburn -twice weekly, improved w/ Tums -no previous EGD -is on Pepcid BID here -FH esophageal/stomach cancer H/o constipation - controlled -uses Metamucil QD CRC screen -reports previous colonoscopy w/ Dr. Diane ~3-4 years ago -- ?GERD - could try PPI Other per Dr. Gonzalez. CYNTHIA BUSTOS Aug 22, 2016 16:51
[2016-08-22] MEDS ORDERED: PANT40TA5 PO (18:09)
[2016-08-22] MEDS ORDERED: ATORVASTATIN CALCIUM 10 MG TABLET. PO SCH (21:00)
[2016-08-22] MEDS ORDERED: FAMOTIDINE 20 MG TABLET. PO SCH (21:00)
[2016-08-22] MEDS ORDERED: DIAZEPAM 5 MG TABLET PO SCH (21:00)
== END 2016-08-22 17:30 | disposition home or self-care (01) ==
LOC: ER 17:21 → 5 SOUTH 21:03
PROVIDERS: ADMIT Internal Medicine; ATTEND Internal Medicine
DX: R07.9 Chest pain, unspecified (principal); E11.9 Type 2 diabetes mellitus without complications; E78.5 Hyperlipidemia, unspecified; I10 Essential (primary) hypertension; K21.9 Gastro-esophageal reflux disease without esophagitis; M79.1 Myalgia
CPT/HCPCS: 36415; 71010; 80048; 80061; 80076; 82947; 83690; 83880; 84484; 85027; 93005; 93306; 96374; 96375; 96376; 97161; 97165; 99285; G0378; J2270; J2405; S0028; G0379

== ENCOUNTER → 2016-09-10 | Outpatient (CLI) | payer MEDICARE ==
[2016-08-22 15:04] VITALS: BP 99/56
[~2016-09-10] MED LIST: DIAZ5TAB4 PO; HYDR50TA6 PO; LINA1TAB5 PO; LOVA20TA2 PO; OMEG1CAP6 PO; PANT40TA5 PO
[2016-09-10 16:24] LABS: BASO # 0.1 x10^3/uL (0.0-0.2); BASO % 1 % (0-3); EOS % 1 % (0-3); HEMATOCRIT 35.8 % (36.0-47.0); HEMOGLOBIN 11.8 g/dL (12.0-15.5); LYMPH # 1.5 x10^3/uL (1.0-4.8); LYMPH % 15 % (24-48); MEAN CORPUSCULAR HEMOGLOBIN 26 pg (25-35); MEAN CORPUSCULAR HGB CONC 33 g/dL (31-37); MEAN CORPUSCULAR VOLUME 79 fL (79-100); MONO % 10 % (0-9); NEUT % 73 % (31-73); PLATELET COUNT 365 x10^3/uL (140-400); RED BLOOD COUNT 4.52 x10^6/uL (3.50-5.40); RED CELL DISTRIBUTION WIDTH 15.5 % (11.5-14.5); WHITE BLOOD COUNT 10.4 x10^3/uL (4.0-11.0)
== END | disposition home or self-care (01) ==
LOC: LAB 16:06
PROVIDERS: ATTEND Family Medicine
DX: D64.9 Anemia, unspecified (principal)
CPT/HCPCS: 36415; 85027